=== PATIENT | female | born 1970 | race Two or more races ===

== ENCOUNTER 2024-01-14 19:31 | Emergency (ER) | payer BC, SELFPAY ==
[2024-01-14 19:33] VITALS: BP 132/91
[2024-01-14 20:29] VITALS: BP 133/83
[2024-01-14 21:00] VITALS: BP 126/77
--- NOTE | 2024-01-14 21:37 | ED.GENMED ---
History of Present Illness
General
Chief Complaint: Musculo-Skeletal Complaint
Source: patient
Exam Limitations: none
Time Seen by Provider: 01/14/24 20:46
Nursing documentation reviewed up to this point in time: agreed with
History of Present Illness
History of Present Illness:
53 y/o F with h/o juany harrington s/p stroke, brain surgery (unclear what)
htn, hld, chronic hpain, ,neuropathy
says she has chronic pain in her neck, back, legs, L>R and [place] her feet
and has been told she has neuropathy
she is from [place] but moved here, her doctors are in [place] and she has no PCP here yet
for her chronic pain she is on gabapentin for years
but then about 1 mo ago she got a prescriptino for t#3 after regular tylenol wasn't helping that she was using chronically
pt says the T#3 is something she triees not to take every day but now when she takes it it doesn't help her pain
then the past 2 days she has had a mild headache, felt nauseated, not well, fatigued,
she has had a cough x 2 weeks
no eval for the cough
daughter has bronchitis
no fever/chills, chestp ain, sob, weakness or numbnes in arms or legs
no focal abd pain
she also thought her blood pressure was the cause of her head/neck pain the past few days
Past History
Past History
ED Past Medical History: HTN, Hypercholesterolemia and Other (harrington harrington, neuropathy)
Social History
Tobacco: Non-smoker
Review of Systems
Review of Systems
Allergies reviewed?: Yes
All Other Systems: Not applicable
Phy Exam
Physical Exam
Physical Exam:
GENERAL: Alert , in no apparent distress
HEAD: NCAT
EYE: pupils equal and reactive, no nystagmus, minimal photophobia
NECK: Supple,full rom, nontender, full rom
ENT: o/p clr, mmm.
CARDIAC: Regular rate and rhythm . no edema
LUNGS: Clear breath sounds bilaterally, no acute respiratory distress, no wheezes/rales/rhonchi
ABDOMEN: Soft, without focal tenderness, no r/g, no cvat
NEUROLOGICAL: Alert and orientedx 4, cn intact, no facial asymmetry, 5/5 strength in UE/LE, sensation intact, romberg neg, ambulates without assistance, neg pronator drift
SKIN: Warm and dry, skin intact.
MUSCULOSKELETAL: No edema, well perfused.
MOVING ALL EXTREMITIES
normal pulses
no discolroation
normal strength and sensation
no swelling
PSYCH: Normal and appropriate interaction.
Course
Orders/Labs/Results
Orders:
Orders
01/14/24 21:05
CT Head W/o Iv Contrast Urgent
Comment:
Reason For Exam: headache,, h/o harrington harrington
01/14/24 21:08
Ondansetron Injectable [Zofran] 4 mg IV NOW STA
01/14/24 21:30
COVID-19 Antigen Urgent
Source: Nasal Swab
Complete Blood Count/With Diff Urgent
Comprehensive Metabolic Panel Urgent
Lipase Urgent
Influenza A+B Rapid Molecular Urgent
CANDIS Source: Nasal Swab
Specimen Description:
01/14/24 21:37
CR Chest - 2 Views Urgent
Comment:
Reason For Exam: cough x 2 weeks
01/14/24 21:57
Urinalysis Reflex To Culture Urgent
Date Specimen was Collected: 01/14/24
Time Specimen was Collected: 21:51
Urine Microscopic Reflex Cult Urgent
Urine Culture Urgent
CANDIS Source: U
Specimen Description:
Date Specimen was Collected: 01/14/24
Time Specimen was Collected: 21:51
01/14/24 22:18
Ketorolac [Toradol] 15 mg IV NOW STA
01/14/24 22:37
Add On - Microbiology Urgent
Tests Added?: URINE CULTURE
Abnormal Lab Results
01/14/24 01/14/24
21:30 21:57
RBC 3.45 L 10^6/uL
(4.20-5.40)
Hgb 10.2 L g/dL
(12.0-16.0)
Hct 33.5 L %
(37.0-47.0)
MCHC 30.4 L g/dL
(33.0-37.0)
BUN 30 H mg/dl
(7-17)
Glucose 107 H mg/dl
(70-99)
Ur Occult Blood Reflex 1+ A
(Negative)
Urine RBC 3-6 A /HPF
(0-2)
Urine Bacteria (Reflex) Few A
(Negative)
01/14/24 21:30
01/14/24 21:30
Vital Signs
Initial and Last Documented VS:
Initial Vital Signs
Temp Pulse Resp BP Pulse Ox
36.9 C 85 17 132/91 100
01/14/24 19:33 01/14/24 19:33 01/14/24 19:33 01/14/24 19:33 01/14/24 19:33
Last Documented Vital Signs
Temp Pulse Resp BP Pulse Ox
36.9 C 85 17 126/77 100
01/14/24 19:33 01/14/24 19:33 01/14/24 19:33 01/14/24 21:00 01/14/24 21:30
MDM/Problems Addressed
Differential Diagnosis Includes:
chronic pain, uri/pna, flu/covid,
MDM/Problems Addressed:
53 y/o F
multiple complaints
chronic pain legs, arms, back, neck
t#3 doesn't really help much
also a few days of not feeling well, heaadhce, some neck pain which she has had before, feels mildy nauseated
she also has had a cough for 2 weeks
pt doesn' thave PCP here, but still communicates [facility] doctors from [place]
her exam is fairly benign; no significcant pain on exam, normal nv exam
she has had craniotomy and cstroke previously
but her headahce is mild, no red flag symptoms
the neck pain thogut it feels a little worse is not a new problem
she has no dizziness, weakness, vision chanes
no fever
her labs are relatelvely unremarkable, mild anemia
she probably shouldn't regularly use nsaids but given her headache/neck pain i think 1 dose toraodl is reasonable to try
she says she takes motrin at home for pain
will ultimately d/c pending UA.
heme neg from below (bun elevated, anemia)
*Critical Care Note
Total Time (30-74mins, 75-104mins- exclusive of procedures): Not Applicable
ED Attending Note
-
Portions of this chart may have been created with voice recognition software.� Occasional wrong word or��sound alike� substitutions may have occurred due to the inherent limitations of voice recognition software.
Discharge Plan
Departure
Patient Disposition: Home (Routine Discharge)
Date of Disposition: 01/14/24
Time of Disposition: 22:44
Patient with high blood pressure during this ER visit?: No
Condition: Fair
Covid-19: Not Applicable
Discharge Problem:
Headache, Chronic pain
Instructions: Chronic pain, Headache, Adult ED
Referrals:
Jayjay Barillas MD [Active] - Follow up in 5-7 days (PAIN MANAGEMENT)
UNKNOWN - PT DOES,NOT KNOW [Family Provider] -
Activity Restrictions/Additional Instructions:
It is important that you follow-up with a new primary care doctor to establish care here. For now you can keep taking the Tylenol or Tylenol with codeine for pain as needed, continue your gabapentin. Your blood pressure was stable here. You are
mildly anemic but there were no other lab findings that were concerning. Your CAT scan was negative. Your COVID and flu test were negative. You had no signs of pneumonia. Return for any worsening symptoms like severe sudden headache, vision
changes, balance problems or weakness, or any concern
YOU HAD A SMALL AMOUNT OF BLOOD IN YOUR URINE. WE WILL SEND A CULTURE ON THIS TO BE SURE NO INFECTION
THIS NEEDS TO BE RECHECKED TO BE SURE IT RSOLVES.
Interventions
Interventions:
*General Assessment Last Done: 01/14/24 21:44
ED- Fall Risk Assessment Last Done: 01/14/24 21:47
*ED COVID-19 Vaccine History Last Done: 01/14/24 21:44
*Nursing Disposition Last Done: 01/14/24 22:49
ED-Musculoskeletal Assessment Last Done: 01/14/24 21:45
Discharge Date and Time
Discharge Date/Time: 01/14/24 22:49
Print Language: TRINIDADIAN
[2024-01-14 21:43] VITALS: BMI 48.5
[2024-01-14 21:46] LABS: % Basophils 0.4 % (0-2); % Eosinophils 1.4 % (0-6); % Immature Granulocytes 0.1 % (0-0.5); % Lymphocytes 27.5 % (20.5-51.1); % Monocytes 6.2 % (1.7-9.3); % Neutrophils 64.4 % (42.2-75.2); Absolute Eosinophils 0.1 10^3/uL (0-0.7); Absolute Monocytes 0.4 10^3/uL (0.1-0.6); Absolute Neutrophils 4.6 10^3/uL (1.4-6.5); Hematocrit 33.5 % (37.0-47.0); Hemoglobin 10.2 g/dL (12.0-16.0); Mean Corp Hgb Conc. 30.4 g/dL (33.0-37.0); Mean Corpuscular Hgb 29.6 pg (27.0-31.0); Mean Corpuscular Volume 97.1 fL (81.0-99.0); Mean Platelet Volume 8.7 fL (7.4-10.4); Nucleated Red Blood Cells % 0 %; Platelet Count 298 10^3/uL (130-400); Red Blood Cell Count 3.45 10^6/uL (4.20-5.40); Red Cell Dist. Width 13.6 % (11.5-14.5); White Blood Cell Count 7.1 10^3/uL (4.8-10.8)
[2024-01-14 21:55] LABS: COVID-19 Antigen Negative (Negative)
[2024-01-14 22:01] LABS: ALT (SGPT) 21 U/L (0-35); AST (SGOT) 26 U/L (14-36); Alkaline Phosphatase 99 U/L (38-126); Blood Urea Nitrogen 30 mg/dl (7-17); Calcium 9.2 mg/dl (8.4-10.2); Carbon Dioxide 22 mmol/L (22-30); Chloride 106 mmol/L (98-107); Estimated Creatinine Clearance 110 ml/min; Glucose 107 mg/dl (70-99); Lipase 72 U/L (23-300); Potassium 4.3 mmol/L (3.5-5.1); Sodium 139 mmol/L (135-145); Total Bilirubin 0.4 mg/dl (0.2-1.3); eGFR > 60.00
[2024-01-14] MEDS: ZOFRAN 4 MG IV (22:03)
[2024-01-14 22:07] LABS: Urine Albumin Negative (Neg - Trace); Urine Bilirubin Negative (Negative); Urine Character Clear (Clear); Urine Color Yellow; Urine Glucose Negative (Negative); Urine Ketone Negative (Negative); Urine Leukocyte Negative (Negative); Urine Nitrite Negative (Negative); Urine Occult Blood 1+ (Negative); Urine Urobilinogen Negative (Neg - 1+)
[2024-01-14] MEDS: TORADOL 15 MG IV (22:26)
[2024-01-14 22:30] LABS: Urine Squamous Cell 26-30 /LPF (Few)
[2024-01-14 22:32] LABS: Urine Bacteria Few (Negative); Urine White Cell 0-2 /HPF (0-5)
== END 2024-01-14 22:49 | disposition home or self-care (01) ==
LOC: EMR 19:31
PROVIDERS: Physician Assistant; EMERGENCY PHYSICIAN Emergency Medicine
DX: R51.9 Headache, unspecified (principal); G89.29 Other chronic pain; M54.2 Cervicalgia; D64.9 Anemia, unspecified; I10 Essential (primary) hypertension; E78.00 Pure hypercholesterolemia, unspecified; G62.9 Polyneuropathy, unspecified; Z86.73 Personal history of transient ischemic attack (TIA), and cerebral infarction without residual deficits
CPT/HCPCS: 99284; 96374; 96375; 70450; 71046; 80053; 81003; 81015; 83690; 85025; 87086; 87502; 87811